=== PATIENT | male | born 1990 | race Caucasian/White ===

== ENCOUNTER 2018-02-14 16:27 | Emergency (ER) | payer OTHER ==
[~2018-02-14] VITALS: Ht 175.3 cm; Wt 84.8 kg
[~2018-02-14 16:27] MED LIST: CIPRO500 MG PO; ZOFRAN4 MG PO
[2018-02-14] MEDS ORDERED: AUGMENTIN875 MG PO (19:51)
[2018-02-14 19:58] VITALS: BP 146/94
== END 2018-02-14 20:19 | disposition home or self-care (01) ==
LOC: EME 16:27
PROC: 3E0234Z Introduction of Serum, Toxoid and Vaccine into Muscle, Percutaneous Approach (ICD-10-PCS; principal; 2018-02-14)
DX: S61.231A Puncture wound without foreign body of left index finger without damage to nail, initial encounter (principal); W55.01XA Bitten by cat, initial encounter; Z20.3 Contact with and (suspected) exposure to rabies; Z23 Encounter for immunization; Z29.14 Encounter for prophylactic rabies immune globulin
CPT/HCPCS: 73140; 99281; 99284

== ENCOUNTER 2018-02-21 10:23 | Emergency (ER) | payer OTHER ==
[~2018-02-21] VITALS: Ht 175.3 cm; Wt 85.4 kg
[~2018-02-21 10:23] MED LIST changes: +AUGMENTIN875 MG PO
[2018-02-21 13:15] VITALS: BP 146/91
== END 2018-02-21 13:15 | disposition home or self-care (01) ==
LOC: EME 10:23
PROC: 3E0234Z Introduction of Serum, Toxoid and Vaccine into Muscle, Percutaneous Approach (ICD-10-PCS; principal; 2018-02-21)
DX: Z23 Encounter for immunization (principal); Z20.3 Contact with and (suspected) exposure to rabies
CPT/HCPCS: 99281; 99283

== ENCOUNTER 2018-02-28 18:56 | Emergency (ER) | payer OTHER ==
[~2018-02-28] VITALS: Ht 175.3 cm; Wt 85.6 kg
[2018-02-28 20:32] VITALS: BP 140/83
== END 2018-02-28 20:34 | disposition home or self-care (01) ==
LOC: EME 18:56
PROC: 3E0234Z Introduction of Serum, Toxoid and Vaccine into Muscle, Percutaneous Approach (ICD-10-PCS; principal; 2018-02-28)
DX: Z20.3 Contact with and (suspected) exposure to rabies (principal); Z23 Encounter for immunization
CPT/HCPCS: 99281; 99283